=== PATIENT | female | born 1970 | race Caucasian/White ===

== ENCOUNTER 2018-11-10 21:31 | Emergency (ER) | payer MEDICAID, OTHER ==
[~2018-11-10] VITALS: Ht 167.6 cm; Wt 75.3 kg
[2018-11-10 21:50] VITALS: BP_SYST 101
[2018-11-10 22:52] LABS: BILIRUBIN,URINE NEGATIVE (NEGATIVE); BLOOD, URINE 2+ (NEGATIVE); CLARITY/URINE CLEAR (CLEAR); COLOR,URINE YELLOW (YELLOW); GLUCOSE,URINE NEGATIVE (NEGATIVE); KETONES,URINE NEGATIVE (NEGATIVE); LEUKOCYTE ESTERASE ,URINE NEGATIVE (NEGATIVE); NITRITE, URINE NEGATIVE (NEGATIVE); PROTEIN URINE NEGATIVE (NEGATIVE); UROBILINOGEN,URINE 0.2 (0.2-1.0)
--- NOTE | 2018-11-10 23:26 | NUR ---
Patient to ER bed 04 to gown for evaluation. Side rails up.
[2018-11-10 23:30] LABS: WBC,URINE 0-3 /HPF (0-3)
--- NOTE | 2018-11-10 23:30 | NUR ---
Patient AOx4, ambulatory, presents to ER with complaint of right upper flank pain and abdominal pain 8/10 x5 days and nausea. Patient medicated with Tylenol and Omeprazole for heartburn. states he did an ultrasound on patient 3 months ago and noted 3 gallstones. Today did another ultrasound and noted 1 gallstone. No other symptoms or complaints.
[2018-11-10 23:31] LABS: BACTERIA,URINE FEW /HPF (None Seen); MUCUS,URINE 1+ /LPF (None Seen)
--- NOTE | 2018-11-10 23:50 | NUR ---
ALINA Angulo at bedside for medical evaluation.
--- NOTE | 2018-11-11 00:08 | NUR ---
# 20 gauge angiocath placed to LAC. Use of asceptic technique. Opsite placed over site. Blood return noted. Blood for lab drawn from site. Flushed with 10 cc of normal saline. No evidence of infiltration noted. Patient tolerated well.
[2018-11-11 00:35] LABS: CREATININE 0.66 mg/dL (0.55-1.30); POTASSIUM 3.7 mmol/L (3.5-5.1)
[2018-11-11 00:40] LABS: ALBUMIN 4.1 g/dL (3.4-4.8); HEMATOCRIT 41.3 % (36-48); MEAN CORPUSCULAR HEMOGLOBIN 29 pg (27-31); MEAN CORPUSCULAR HGB CONC 34 % (32-36); MEAN CORPUSCULAR VOLUME 87 fL (79.0-98.0); RED BLOOD CELL COUNT(AUTO) 4.77 MIL/uL (4.2-6.2); TOTAL BILIRUBIN 0.4 mg/dL (0.0-1.0); WHITE BLOOD COUNT (AUTO) 10.1 K/uL (4.8-10.8)
[2018-11-11 00:41] LABS: BASOPHILS # (AUTO) 0.1 K/uL (0.0-0.2); BASOPHILS % (AUTO) 0.6 % (0.0-2.0); EOSINOPHILS # (AUTO) 0.3 K/uL (0.0-0.4); EOSINOPHILS % (AUTO) 3.1 % (0.0-4.0); LYMPHOCYTES # (AUTO) 2.9 K/uL (1.0-5.5); LYMPHOCYTES % (AUTO) 28.5 % (20.5-51.5); MONOCYTES # (AUTO) 0.8 K/uL (0.0-1.0); MONOCYTES % (AUTO) 7.9 % (1.7-9.3); NEUTROPHILS # (AUTO) 6.1 K/uL (1.8-7.7); NEUTROPHILS % (AUTO) 59.9 % (40.0-70.0); PLATELET COUNT (AUTO) 258 K/uL (130-430); RED CELL DISTRIBUTION WIDTH 13.9 % (9.0-15.0)
[2018-11-11 01:10] LABS: C-REACTIVE PROTEIN QUANT 0.7 mg/dL (0-0.5)
[2018-11-11] MEDS ORDERED: KETOROLAC TROMETHAMINE 15 MG VIAL IVP ONE (01:15)
[2018-11-11 01:28] LABS: ERYTHROCYTE SEDIMENTATION RATE 13 MM/HR (0-20)
[2018-11-11 01:52] VITALS: BP_SYST 124
--- NOTE | 2018-11-11 01:52 | NUR ---
Patient given written and verbal discharge instructions and verbalizes understanding. ER MD discussed with patient the results and treatment provided. Patient in stable condition. ID arm band removed. IV catheter removed intact and dressing applied, no active bleeding. No Rx given. Patient educated on pain management and to follow up with PMD. Pain Scale 2/10. Opportunity for questions provided and answered. Medication side effect fact sheet provided.
== END 2018-11-11 01:52 | disposition home or self-care (01) ==
LOC: SED 21:31
DX: K80.20 Calculus of gallbladder without cholecystitis without obstruction (principal); Z90.89 Acquired absence of other organs; Z88.8 Allergy status to other drugs, medicaments and biological substances
CPT/HCPCS: 36415; 80053; 81000-TC; 83690-TC; 85025; 85651-TC; 86140; 99283; J1885

== ENCOUNTER 2019-02-14 19:27 | Emergency (ER) | payer OTHER ==
[~2019-02-14] VITALS: Ht 167.6 cm; Wt 72.6 kg
[2019-02-14 19:40] VITALS: BP_SYST 111
[2019-02-14 21:25] VITALS: BP_SYST 112
== END 2019-02-14 21:25 | disposition home or self-care (01) ==
LOC: SED 19:27
DX: H60.92 Unspecified otitis externa, left ear (principal); Z88.8 Allergy status to other drugs, medicaments and biological substances
CPT/HCPCS: 99283